=== PATIENT | male | born 1975 | race Caucasian/White ===

== ENCOUNTER 2020-12-22 18:30 | Emergency (ER) | payer OTHER ==
[~2020-12-22] VITALS: Ht 177.8 cm; Wt 123.8 kg
--- NOTE | 2020-12-22 18:43 | NUR ---
ANATOMIC PATHOLOGIST: EKG IN TRIAGE.
[2020-12-22] MEDS ORDERED: FLUT9.9S NAS (19:22)
--- NOTE | 2020-12-22 19:35 | NUR ---
pt came into ed today due to dizziness and a wiggins with light sensitivity, reports one similar event in the past. pt changed into gown, appears comfortable, nad, [facility]ctm.
[2020-12-22] MEDS ORDERED: MECLIZINE CHEWABLE 25 MG TAB ONE (20:22)
[2020-12-22] MEDS ORDERED: MECLIZINE CHEWABLE 25 MG TAB PO ONE (20:30)
--- NOTE | 2020-12-22 20:33 | NUR ---
pt resting on zachary, victorino, no change in condition, medicated per mar, MRI screening completed and faxed, mom at , [facility].
[2020-12-22 20:48] LABS: ALBUMIN 3.7 g/dL (3.4-5.0); ANION GAP 7 mmol/L (5-15); BASOPHILS % (AUTO) 1 % (0-1); CHLORIDE 109 mmol/L (98-107); CREATININE 1.36 mg/dL (0.7-1.3); EOSINOPHILS % (AUTO) 5 % (1-7); LYMPHOCYTES % (AUTO) 35 % (22-44); MEAN CORPUSCULAR HEMOGLOBIN 34.1 pg (27.5-34.5); MEAN CORPUSCULAR HGB CONC 34.7 g/dL (33.2-36.2); MEAN PLATELET VOLUME 7.9 fL (7.4-10.4); MONOCYTES % (AUTO) 12 % (2-9); NEUTROPHILS % (AUTO) 48 % (42-75); PLATELET COUNT 165 x10^3/uL (130-400); RED BLOOD COUNT 4.96 x10^6/uL (4.38-5.82); RED CELL DISTRIBUTION WIDTH 14.3 % (9.4-14.8)
[2020-12-22 20:49] LABS: INTERNATIONAL NORMALIZED RATIO 0.98 (0.93-1.1); PROTHROMBIN TIME 10.5 Seconds (9.6-11.5)
--- NOTE | 2020-12-22 20:53 | NUR ---
PT TO MRI AT THIS TIME. RESTING ON GURNEY, NO CHANGE IN CONDITION, [facility]
--- NOTE | 2020-12-22 22:05 | NUR ---
PT RESTING ON GURNEY, NAD, APPEARS COMFORTABLE, VSS, BED IN LOWEST, RAILS ENGAGED, CALL LIGHT AT THE BS, MOM AT BS. WCTM. WAITING FOR CT READ
[2020-12-22 23:12] VITALS: BP 139/87
--- NOTE | 2020-12-22 23:30 | NUR ---
Patient given discharge instructions and they have confirmed that they understand the instructions. Patient ambulatory with steady gait. NAD, all questions answered appropriately, denies additional needs at this time. No personal belongings left in room after discharge.
== END 2020-12-22 23:31 | disposition home or self-care (01) ==
LOC: ED 22:04
DX: R42 Dizziness and giddiness (principal); R51.9 Headache, unspecified
CPT/HCPCS: 36415; 70450; 70551; 80048; 82040; 85025; 85610; 85730; 93005; 99285